=== PATIENT | male | born 1990 | race Caucasian/White ===

== ENCOUNTER → 2017-08-22 | Outpatient (CLI) | payer OTHER ==
[~2017-08-22] MED LIST: AZIT1PAC21 PO; CEP500 PO; CETI1TAB80 PO; NO RTN MEDS
--- NOTE | 2017-08-22 16:12 | EKG ---
FACILITY: [facility] [place] PATIENT NAME: SOWMYA LOZOYA : [id number] MR: [id number] V: [id number] EXAM DATE: ORDERING PHYSICIAN: DAVIDOSN ASHBY TECHNOLOGIST: YOU Test Reason : CP Blood Pressure : / mmHG Vent. Rate : 085 BPM Atrial Rate : 085 BPM P-R Int : 128 ms QRS Dur : 090 ms QT Int : 388 ms P-R-T Axes : 047 048 029 degrees QTc Int : 461 ms Normal sinus rhythm with sinus arrhythmia No ST-T abnormalities No previous ECGs available Confirmed by RADHA KWONG ([id number]) on 08/22/2017 5:10:23 PM Referred By: SYMONE Confirmed By:RADHA KWONG
--- NOTE | 2017-08-22 16:43 | RADIOLOGY IMAGING REPORT ---
FACILITY: [facility] PATIENT NAME: Freeman Morales : 1990 MR: [id number] V: [id number] EXAM DATE: ORDERING PHYSICIAN: DAVIDSON ASHBY TECHNOLOGIST: Location: [facility] Patient: Freeman Morales : 1990 Visit/Account:[id number] Date of Sevice: 08/22/2017 Exam type: CHEST PA AND LAT History: Centralized chest pain history of smoking, no known injury Comparison: None. Findings: The lungs are free of acute effusions, infiltrates or edema. The cardiac silhouette is normal in siz e. The trachea is in midline. IMPRESSION: 1. No acute cardiac pulmonary process is seen Report Dictated By: Kika Chiang MD at 08/22/2017 4:38 PM Report E-Signed By: Kika Chiang MD at 08/22/2017 4:38 PM WSN:[id number]
== END ==
LOC: RESP 15:55
PROVIDERS: ATTEND Nurse Practitioner Family
DX: R07.9 Chest pain, unspecified (principal)
CPT/HCPCS: 71046; 93005

== ENCOUNTER → 2017-08-23 | Outpatient (CLI) | payer OTHER ==
[2017-08-23 16:08] LABS: PLATELET COUNT, AUTOMATED 148 K/uL (150-450)
[2017-08-23 16:22] LABS: LDL CHOLESTEROL 84 mg/dl
== END ==
LOC: LAB 15:55
PROVIDERS: ATTEND Nurse Practitioner Family
DX: Z00.00 Encounter for general adult medical examination without abnormal findings (principal)
CPT/HCPCS: 36415; 82040; 82247; 82310; 82374; 82435; 82465; 82565; 82947; 83718; 84075; 84132; 84155; 84295; 84443; 84450; 84460; 84478; 84520; 85025